=== PATIENT | male | born 1995 | race Two or more races ===

== ENCOUNTER 2017-11-14 02:47 | Emergency (ER) | payer OTHER ==
[2017-11-14 02:54] VITALS: BP 124/79
--- NOTE | 2017-11-14 03:56 | EDPHY ---
H & P Stated Complaint: L first finger lac Time Seen by Provider: 11/14/17 03:53 HPI/ROS: HPI CHIEF COMPLAINT: Left index finger laceration HISTORY OF PRESENT ILLNESS: Patient very pleasant 22-year-old male, otherwise healthy without any significant medical history except for asthma he presents emergency room with a left finger laceration. Patient reports that was cutting a piece of food the knife slipped and hit his left index finger distal aspect. He sustained a 2 cm laceration. Patient reports his tetanus shot is up-to- date. This happened an hour ago. Clean knife. Past Medical History: Asthma Past Surgical History: No surgical history Social History: Lives locally, [employer] student. Denies drugs alcohol tobacco. Family History: Noncontributory ROS REVIEW OF SYSTEMS: A comprehensive 10 point review of systems is otherwise negative aside from elements mentioned in the history of present illness. Exam Constitutional appears well nontoxic triage nursing summary reviewed, vital signs reviewed, awake/alert. Eyes normal conjunctivae and sclera, EOMI, PERRLA. HENT normal inspection, atraumatic, moist mucus membranes, no epistaxis, neck supple/ no meningismus, no raccoon eyes. Respiratory clear to auscultation bilaterally, normal breath sounds, no respiratory distress, no wheezing. Cardiovascular rate normal, regular rhythm, no murmur, no edema, distal pulses normal. Gastrointestinal soft, non-tender, no rebound, no guarding, normal bowel sounds, no distension, no pulsatile mass. Genitourinary no CVA tenderness. Musculoskeletal no midline vertebral tenderness, full range of motion, no calf swelling, no tenderness of extremities, no meningismus, good pulses, neurovascularly intact. Skin left index finger: Palmar side there is a 2 cm distal left index finger laceration. There is no tendon involvement. No arterial involvement. No bony involvement. Full range of motion. No tendon laceration. Normal flexion and extension. pink, warm, & dry, no rash Neurologic awake, alert and oriented x 3, AAOx3, moves all 4 extremities equally, motor intact, sensory intact, CN II-XII intact, normal cerebellar, normal vision, normal speech. Psychiatric normal mood/affect. Heme/Lymph/Immune no lymphadenopathy. Differential Diagnosis: Includes but is not limited to in a particular order left index finger laceration, soft tissue injury, wound care Medical Decision Making: Plan for this patient copiously irrigating clean his wound. And then he will have sutures placed for laceration repair. Re-evaluation: Laceration Repair Procedure: Verbal Consent was obtained, Under sterile conditions, The patient had lidocaine with/out epinephrine used approximately 3ccs to local anesthetize the Left index finger distal aspect palmar side laceration 2 cm, Laceration. The wound was copiously irrigated with sterile fluid, the wound was explored for foreign bodies there were none visualized, the wound was explored with a sterile glove to the base. There are no deep structures involved, including no arterial injury. No tendon involvement. Neurovascular intact good cap refill, full range of motion. Normal flexion and extension. No evidence of tendon rupture. THREE 6.O PROLENE interrupted Sutures were placed in this patient's laceration. He had good close approximation of the wound edges. He Tolerated this well. 0355: 1.Patient understands to have sutures removed in 12-14 days. 2. Understands the keep the wound clean, dry and protected in splint. 3. Watch for signs of infection. 4. Return emergency room if there is any worsening symptoms questions concerns he understands. Source: Patient - Personal History Current Tetanus/Diphtheria Vaccine: Yes Current Tetanus Diphtheria and Acellular Pertussis (TDAP): Yes - Medical/Surgical History Hx Asthma: Yes Hx Chronic Respiratory Disease: No Hx Diabetes: No Hx Cardiac Disease: No Hx Renal Disease: No Hx Cirrhosis: No Hx Alcoholism: No Hx HIV/AIDS: No Hx Splenectomy or Spleen Trauma: No Other PMH: Asthma - Social History Smoking Status: Never smoked Constitutional: Initial Vital Signs Temperature (C) 36.7 C 11/14/17 02:50 Heart Rate 98 11/14/17 02:50 Respiratory Rate 16 11/14/17 02:50 Blood Pressure 124/79 H 11/14/17 02:50 O2 Sat (%) 96 11/14/17 02:50 O2 Delivery Mode Room Air Allergies/Adverse Reactions: No Known Allergies Allergy (Unverified 11/14/17 02:54) Home Medications: Medication Instructions Recorded NK [No Known Home Meds] 11/14/17 Departure - Departure Disposition: Home, Routine, Self-Care Clinical Impression: Laceration Condition: Good Instructions: Laceration (ED), Care For Your Stitches (ED) Additional Instructions: 1. Patient understands to have sutures removed in 12-14 days. 2. Understands the keep the wound clean, dry and protected in splint. 3. Watch for signs of infection. 4. Return emergency room if there is any worsening symptoms questions concerns he understands. Referrals: NONE *PRIMARY CARE P,. [Primary Care Provider] - As per Instructions
== END 2017-11-14 04:45 | disposition home or self-care (01) ==
PROC: 0HQGXZZ Repair Left Hand Skin, External Approach (ICD-10-PCS; principal; 2017-11-14)
DX: S61.211A Laceration without foreign body of left index finger without damage to nail, initial encounter (principal); J45.909 Unspecified asthma, uncomplicated; W26.0XXA Contact with knife, initial encounter